=== PATIENT | female | born 1980 | race American Indian/Alaskan Native ===

== ENCOUNTER → 2017-10-27 | Day surgery (SDC) | payer MEDICAID ==
[~2017-10-27] MED LIST: Bupivacaine 0.5% 10 ML SDV INJECT ONE; Bupivacaine 0.5% 10 ML SDV ONE; Dexamethasone 4 MG/ML SDV IV ONE; Gentamicin 40 MG/ML 2 ML Vial ONE; Glycopyrrolate 0.2 MG/ML 2 ML SDV IV ONE; Ketorolac 30 MG/ML SDV IVPUSH ONE; Lactated Ringers 1,000 ML IV SCH; Lidocaine 1% 30 ML SDV INJECT ONE; Lidocaine 1% 30 ML SDV ONE; Midazolam 1 MG/ML 2 ML SDV IV ONE; Ondansetron 4 MG/2 ML SDV IV ONE; Propofol 200 MG/20 ML SDV IV ONE; Sodium Chloride 0.9% 10 ML Syringe FLUSH PRN; ceFAZolin 1 GM in Premix Bag 1 BAG IV ONE; ceFAZolin 2 GM in Premix Bag 1 BAG IV ONE; fentaNYL 100 MCG/2 ML SDV IV ONE
--- NOTE | 2017-10-27 11:29 | PCM.OPNOTE ---
- General Post-Op/Procedure Note Date of Surgery/Procedure: 10/27/17 Operative Procedure(s): right anterior tibial tendon debridement with chorion allograft Pre Op Diagnosis: right anterior tibial tendon pain with nodule Post-Op Diagnosis: francie with abscess/inflammatory nodule Anesthesia Technique: General LMA Primary Surgeon: Eunice Craven Anesthesia Provider: Balta Paz EBL in mLs: 5 Complications: none Condition: Good Free Text/Narrative:: Intake & Output 10/26/17 10/27/17 10/27/17 22:59 06:59 14:59 Intake Total 50 Balance 50 Pt tolerated procedure well and was transported to recovery with vss and vascular status intact to [facility]. Culture taken and abcess/inflammatory sac removed and sent to pathology. Amniofix allograft applied to tendon. Pt placed in well padded L&U splint NWB.
[2017-10-27 12:09] VITALS: BP 134/79
--- NOTE | 2017-10-28 13:41 | OR ---
DATE: 10/27/2017 PREOPERATIVE DIAGNOSES: 1. Anterior tibial tendinopathy, right ankle. 2. Foreign body reaction, right anterior tibial tendon. POSTOPERATIVE DIAGNOSES: 1. Anterior tibial tendinopathy, right ankle. 2. Foreign body reaction, right anterior tibial tendon. 3. Inflammatory soft tissue mass/abscess, right ankle. PROCEDURE PERFORMED: Right anterior tibial tendon debridement with removal of soft tissue mass and application of amnion allograft. ANESTHESIA: General LMA with preoperative local block of 10 mL of 1:1 mixture of 1% lidocaine plain and 0.5% Marcaine plain. TOURNIQUET TIME: 75 minutes of pneumatic thigh tourniquet. ESTIMATED BLOOD LOSS: Minimal SPECIMEN REMOVED: Right ankle tendon mass. There was also culture performed at the right ankle. COMPLICATIONS: None. INDICATIONS: Stpehanie is a 36-year-old female who presents with right ankle pain. I have seen her multiple times in the past, I have also done surgery on this tendon in the past where she had gotten infection right after the surgery due to removing her dressings and getting it wet. She had to be taken to the operating room for washout and was not compliant with nonweightbearing, she ended up rupturing that tendon. I did have to bring her in to get the tendon repaired. Now she has been having some issues since the tendon repair, which was last year. She has a mass on the side of the tendon area/surgical area that seems to swell up and then it will sometimes ooze green drainage and then she will get a popping sensation in that area and the swelling will go back down again. This has been a cycle for her that has been continuing. She no longer has any open lesions at this time, but still that painful palpable lump on the side of the tendon. MRI of the right ankle reveals abnormal appearance of the tendon at the dorsal ankle with multiple areas of increased signal intensity to the tendon and a bulbous appearance at the dorsal ankle at the anterior tibial tendon. The tendon appears intact. There is significant area of surrounding increased signal intensity. The other ankles and ankle joint appear healthy. The patient voiced good understanding of proposed procedure and possible complications and elects to have surgery at this time. DESCRIPTION OF THE PROCEDURE: The patient was taken to the operating room lying in supine position. After adequate anesthesia induction as described above, the right foot and ankle were prepped and draped in the usual sterile fashion. A pneumatic thigh tourniquet was inflated to 225 mmHg. Attention was then directed to the right dorsal ankle overlying the tibialis anterior tendon, where a curvilinear incision was made just medial to the tendon at the area of the soft tissue mass. Sharp and blunt dissection were performed down to the level of the anterior tibial tendon and the soft tissue mass. There was a significant amount of scar tissue in this area and the tendon was adhered down to the dorsal ankle capsule. There was a large soft tissue mass at the medial aspect of the anterior tibial tendon coming right off the tendon that appeared to have inflammation tissue within the mass and there was a greenish drainage coming from the mass. This was completely excised off the tendon and cultures were taken as well as this was sent to Pathology. There was noted to be a large group of sutures within the mass. They were nylon sutures. The tendon was freed of all scar tissue and was debrided of all scarred/nonviable tissue. Once normal healthy-appearing tendon was visualized, the remainder of the nylon sutures were removed from the tendon and there were some inflammatory changes around the sutures. Any Non-healthy appearing tendon was removed and an amnion allograft was applied to the tendon. The tendon was fully intact. Before the graft was placed, the area was irrigated with copious amounts of sterile saline with gentamicin mixture. The graft was placed in the deep tissue was closed with 3-0 Vicryl and skin closure was completed with 4-0 nylon. The area was dressed with Xeroform to the incision site, fluffs, Webril, and a well-padded L and U splint with the foot in slight inversion. She will be nonweightbearing and is not to remove the splint. She tolerated the anesthesia and procedure well and was transported to the recovery room with vital signs stable and vascular status intact as noted by immediate hyperemia to all digits upon deflation of the thigh tourniquet. The patient was then discharged home when she met the hospital discharge requirements. [facility] /[id number]
== END | disposition home or self-care (01) ==
LOC: DL.SDS 07:00
PROVIDERS: ATTEND Podiatrist
DX: M76.811 Anterior tibial syndrome, right leg (principal); L02.415 Cutaneous abscess of right lower limb
CPT/HCPCS: 00400; 81025; 87070; 87075; 87077; 87186; C1762; J0690; J1100; J1580; J1885; J2250; J2405; J2704; J3010; J3490; J7120

== ENCOUNTER 2020-01-16 20:10 | Emergency (ER) | payer MEDICAID ==
[2020-01-16 20:28] VITALS: BP 161/88; PULSE 95
--- NOTE | 2020-01-16 21:00 | EDM.PDOC ---
ED HPI GENERAL MEDICAL PROBLEM - General Chief Complaint: Upper Extremity Injury/Pain Stated Complaint: AMBULANCE Time Seen by Provider: 01/16/20 20:15 Source of Information: Reports: Patient, EMS History Limitations: Reports: No Limitations - History of Present Illness INITIAL COMMENTS - FREE TEXT/NARRATIVE: ED via [facility] with report of fall at home [employer] fell on right arm, Reports slipped . Pain to elbow and wrist. Sling per EMS. No gross deformity, mild swelling lateral wrist. Did not hit head. Denies other injury Right Arm Pain Score (Numeric/FACES): 6 - Related Data Allergies Allergy/AdvReac Type Severity Reaction Status Date / Time codeine Allergy Itching Verified 01/16/20 20:16 tramadol Allergy Hives Verified 01/16/20 20:16 Home Meds: Home Meds Betamethasone Valerate 1 applic TOP BEDTIME PRN 08/25/16 [History] Gabapentin 600 mg PO TID 08/25/16 [History] oxyCODONE HCl/Acetaminophen [oxyCODONE-Acetaminophen 10-325] 10 tab PO BID 08/25 [History] Diclofenac Sodium [Voltaren 1% Gel] 1 applic TOP ASDIRECTED PRN 10/25/17 [ History] Past Medical History - Past Health History Medical/Surgical History: Denies Medical/Surgical History HEENT History: Reports: Impaired Vision Other HEENT History: RECURRENT APHTHOUS STOMATITIS (CANKER SORE); LIP PIERCINGS Cardiovascular History: Reports: None Respiratory History: Reports: Bronchitis, Recurrent Gastrointestinal History: Reports: Cholelithiasis, Chronic Constipation, Gastritis, GERD Genitourinary History: Reports: Other (See Below) Other Genitourinary History: PCOS; GALACTORRHEA (MILKY DISCHARGE FROM BREAST); AMENORRHEA DIRECTOR OF [employer] History: Reports: Polycystic Ovaries, , Other (See Below) 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: AMENNORHEA, galactorrhea Musculoskeletal History: Reports: Other (See Below) Other Musculoskeletal History: ARTHRALGIA; PSORIATIC ARTHRITIS Neurological History: Reports: None Psychiatric History: Reports: None Endocrine/Metabolic History: Reports: Obesity/BMI 30+ Hematologic History: Reports: None Immunologic History: Reports: Other (See Below) Other Immunologic History: PSORIATIC ARTHRITIS Oncologic (Cancer) History: Reports: None Dermatologic History: Reports: Other (See Below) Other Dermatologic History: TRACTION ALOPECIA, 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 Under care for a torn tendon in right ankle, on oxycodone/apap BID Oncologic Surgical History: Reports: None Dermatological Surgical History: Reports: None Social & Family History - Family History HEENT: Reports: Cataract Cardiac: Reports: Blood Clots/VTE/DVT, CAD, Hypertension, Pacemaker Respiratory: Reports: Asthma GI: Reports: None : Reports: None Musculoskeletal: Reports: Arthritis Neurological: Reports: CVA Psychiatric: Reports: None Endocrine/Metabolic: Reports: Diabetes, type II, Hypothyroidism, Other (See Below) Other Endocrine/Metabolic Family History: MULTIPLE FAMILY MEMBERS Hematologic: Reports: None Immunologic: Reports: None Dermatologic: Reports: Eczema Oncologic: Reports: Breast, Ovarian, Other (See Below) Other Oncologic Family History: UNKNOWN PATERNAL GRANDMOTHER - Tobacco Use Smoking Status *Q: Never Smoker Second Hand Smoke Exposure: No - Caffeine Use Caffeine Use: Reports: Soda Other Caffeine Use: AVERAGE OF 2-3 BEVERAGES A DAY - Recreational Drug Use Recreational Drug Use: No Review of Systems - Review of Systems Review Of Systems: Comprehensive ROS is negative, except as noted in HPI. ED EXAM, GENERAL - Physical Exam Exam: See Below Exam Limited By: No Limitations General Appearance: Alert, Mild Distress (tearful) Eye Exam: Bilateral Eye: EOMI, PERRL Ears: Normal External Exam, Normal TMs Nose: Normal Inspection Throat/Mouth: Normal Inspection Head: Atraumatic, Normocephalic Neck: Normal Inspection. No: Tender Lateral, Tender Midline Respiratory/Chest: No Respiratory Distress, Lungs Clear, Normal Breath Sounds Cardiovascular: Normal Peripheral Pulses, Regular Rate, Rhythm Back Exam: Normal Inspection Extremities: Arm Pain (elbow to wrist right mild deformity swelling right alteral wrist. good hand grasp) Neurological: Alert, Oriented Psychiatric: Tearful Skin Exam: Warm, Dry, Intact, Normal Color. No: Ecchymosis Course - Vital Signs Last Recorded V/S: Last Vital Signs Temp 99 F 03/25/20 20:11 Pulse 95 01/16/20 20:11 Resp 18 01/16/20 20:11 BP 161/88 H 01/16/20 20:11 Pulse Ox 100 01/16/20 20:11 - Orders/Labs/Meds Orders: Active Orders 24 hr Category Date Time Status Elbow Min 3V Rt [CR] Urgent Exams 01/16/20 20:13 Taken Forearm 2V Rt [CR] Urgent Exams 01/16/20 20:13 Taken Wrist Comp Min 3V Rt [CR] Urgent Exams 01/16/20 20:13 Taken - Radiology Interpretation Free Text/Narrative:: xray right elbow, forearm, and wrist negative for fracture, see reports Departure - Departure Time of Disposition: 20:58 Disposition: Home, Self-Care 01 Condition: Good Clinical Impression: Right arm pain - Discharge Information *PRESCRIPTION DRUG MONITORING PROGRAM REVIEWED*: No *COPY OF PRESCRIPTION DRUG MONITORING REPORT IN PATIENT SEBLE: No Instructions: How To Use a Sling, [id number], Musculoskeletal Pain Referrals: PCP,Unobtain [Ordering Only Provider] - Forms: ED Department Discharge Additional Instructions: ice to wrist and arm tylenol every 4 hours as needed for pain sling for comfort follow up in clinic if continued pain Sepsis Event Note - Evaluation Sepsis Screening Result: No Definite Risk - Focused Exam Vital Signs: Vital Signs Temp Pulse Resp BP Pulse Ox 01/16/20 20:11 99 F 95 18 161/88 H 100 Date Exam was Performed: 01/17/20 Time Exam was Performed: 03:35 - My Orders Last 24 Hours: My Active Orders 01/16/20 20:13 Elbow Min 3V Rt [CR] Urgent Forearm 2V Rt [CR] Urgent Wrist Comp Min 3V Rt [CR] Urgent - Assessment/Plan Last 24 Hours: My Active Orders 01/16/20 20:13 Elbow Min 3V Rt [CR] Urgent Forearm 2V Rt [CR] Urgent Wrist Comp Min 3V Rt [CR] Urgent
== END 2020-01-16 21:10 | disposition home or self-care (01) ==
LOC: DL.ED 20:10
DX: M79.601 Pain in right arm (principal); M79.89 Other specified soft tissue disorders; E66.9 Obesity, unspecified; Z68.34 Body mass index [BMI] 34.0-34.9, adult; Z88.5 Allergy status to narcotic agent; Z79.899 Other long term (current) drug therapy
CPT/HCPCS: 73080-RT; 73090-RT; 73110-RT; 99283-25

== ENCOUNTER 2020-04-17 07:13 | Day surgery (SDC) | payer MEDICAID ==
[~2020-04-17 07:13] MED LIST changes: -Bupivacaine 0.5% 10 ML SDV INJECT ONE; -Bupivacaine 0.5% 10 ML SDV ONE; -Dexamethasone 4 MG/ML SDV IV ONE; -Gentamicin 40 MG/ML 2 ML Vial ONE; -Glycopyrrolate 0.2 MG/ML 2 ML SDV IV ONE; -Ketorolac 30 MG/ML SDV IVPUSH ONE; -Lactated Ringers 1,000 ML IV SCH; -Lidocaine 1% 30 ML SDV INJECT ONE; -Lidocaine 1% 30 ML SDV ONE; -Midazolam 1 MG/ML 2 ML SDV IV ONE; -Ondansetron 4 MG/2 ML SDV IV ONE; -Propofol 200 MG/20 ML SDV IV ONE; -ceFAZolin 1 GM in Premix Bag 1 BAG IV ONE; -ceFAZolin 2 GM in Premix Bag 1 BAG IV ONE; -fentaNYL 100 MCG/2 ML SDV IV ONE
[2020-04-17] MEDS ORDERED: Bupivacaine 0.5% 30 ML SDV INJECT ONE ×4 (07:14→09:33)
[2020-04-17] MEDS ORDERED: Midazolam 1 MG/ML 2 ML SDV IV ONE (07:14)
[2020-04-17] MEDS ORDERED: Ondansetron 4 MG/2 ML SDV IV ONE (07:14)
[2020-04-17] MEDS ORDERED: Dexamethasone 4 MG/ML SDV IV ONE (07:14)
[2020-04-17] MEDS ORDERED: Betamethasone Acetate/Betamethasone Sod Phosphate 30 MG/5 ML MDV INJECT ONE (07:14)
[2020-04-17] MEDS ORDERED: fentaNYL 100 MCG/2 ML SDV IV ONE (07:14)
[2020-04-17] MEDS ORDERED: Lidocaine 1% 30 ML SDV INJECT ONE ×4 (07:14→09:33)
[2020-04-17] MEDS ORDERED: Propofol 200 MG/20 ML SDV IV ONE (07:14)
[2020-04-17] MEDS ORDERED: Ketorolac 30 MG/ML SDV IVPUSH ONE (07:14)
[2020-04-17] MEDS ORDERED: Bupivacaine 0.5% 30 ML SDV ONE (07:20)
[2020-04-17] MEDS ORDERED: Lidocaine 1% 30 ML SDV ONE (07:21)
[2020-04-17] MEDS ORDERED: Sodium Chloride 0.9% 10 ML Syringe FLUSH PRN (08:00)
[2020-04-17] MEDS ORDERED: Lactated Ringers 1,000 ML IV SCH (08:00)
[2020-04-17] MEDS: ceFAZolin 2 GM in Premix Bag 1 BAG IV ONE ×2 (08:09→08:39)
[2020-04-17] MEDS ORDERED: Betamethasone Acetate/Betamethasone Sod Phosphate 30 MG/5 ML MDV ONE ×2 (09:09→09:31)
[2020-04-17] MEDS ORDERED: Acetaminophen/oxyCODONE 325-5 MG Tab PO PRN (09:50)
--- NOTE | 2020-04-17 09:53 | PCM.OPNOTE ---
- General Post-Op/Procedure Note Date of Surgery/Procedure: 04/17/20 Operative Procedure(s): right ankle tendon exploration with scar tissue excision and epifix application, sinus tarsi ganglion cyst excision Pre Op Diagnosis: right ankle pain and tendonopathy, ganglion cyst sinus tarsi Post-Op Diagnosis: francie Anesthesia Technique: General LMA, Local Primary Surgeon: Eunice Craven Anesthesia Provider: Balta Paz Pathology: ganglion cyst sinus tarsi EBL in mLs: 5 Complications: none Condition: Good Free Text/Narrative:: Pt tolerated procedure well and was transported to recovery with vascular status intact to right LE. Well padded compression dressing applied. Epifix applied to right ankle tendon
[2020-04-17 12:43] VITALS: BP 117/61; PULSE 52
--- NOTE | 2020-04-18 14:46 | OR ---
DATE: 04/17/2020 PREOPERATIVE DIAGNOSES: 1. Right foot ganglion cyst. 2. Right foot ankle tendinopathy. POSTOPERATIVE DIAGNOSES: 1. Right foot ganglion cyst. 2. Right foot ankle tendinopathy. PROCEDURES PERFORMED: 1. Right foot ganglion cyst excision. 2. Right ankle extensor tendon exploration with EpiFix application. ANESTHESIA: Local MAC with preoperative local block of 10 mL of 1:1 mixture of 1% lidocaine plain and 0.5% Marcaine plain. TOURNIQUET TIME: 28 minutes, pneumatic ankle tourniquet. ESTIMATED BLOOD LOSS: Minimal. SPECIMEN REMOVED: Right foot cyst. COMPLICATIONS: None. INDICATIONS: Stephanie is a 39-year-old female who presents with chronic right ankle pain. She has had a few different surgeries to this foot, starting with a different business management associate performing where he did tendon debridement of the anterior tibial tendon x2 and then also she developed an infection in the area and subsequent fracture which seemed to be repaired. She is still having pain along the top of the ankle, but it seems to be more along the extensor tendons and not at the anterior tibial tendon anymore, but there is quite a bit of scar tissue in that area. She also has pain to the outside of her ankle/foot sinus tarsi area that shoots across the whole foot to the other side. She has failed injections of cortisone, anti-inflammatories. MRI of the right ankle reveals ganglion cyst present to the sinus tarsi area measuring 8 x 10 x 6 mm, improved appearance to the anterior tibial tendon when compared to last MRI with some thickening consistent with postoperative changes, marrow edema to the navicular, ligaments of the ankle and foot intact, increased signal to the extensor tendon of the ankle without evidence of intrasubstance tear. The patient voiced good understanding of proposed procedure and possible complications and elects to have surgery at this time. DESCRIPTION OF PROCEDURE: The patient was taken to the operating room lying in the supine position. After adequate anesthesia induction as described above, the right foot and ankle were prepped and draped in usual sterile fashion. A pneumatic ankle tourniquet was then inflated to 225 mmHg. Attention was first directed to the lateral foot just overlying the sinus tarsi where I could feel a palpable cyst, a 3 cm linear incision was made overlying the cyst area. Sharp and blunt dissection was performed down to level of the soft tissue mass, being careful to retract all neurovascular structures. The cyst was excised, it was popped when I was removing it and there was a ganglion type fluid in the cyst. The tissue was sent to pathology. The area was then inspected for any other soft tissue masses and none were identified. The area was irrigated with copious amounts of sterile saline and closure was completed with 3-0 Vicryl and 4-0 nylon. Attention was then directed to the dorsal aspect of the ankle where I had marked out her maximum area of tenderness which was overlying the extensor tendon. Sharp and blunt dissection was performed down to level of the tendon, this appeared healthy in appearance, however, there was some scar tissue just medial to that area overlying the anterior tibial tendon. I was able to see the anterior tibial tendon as well and this appeared healthy in appearance. There was quite a bit of scar tissue, which was all released from the area, so I had good fluid range of motion. I did apply the EpiFix to this area to help prevent scar tissue regrowth, the EpiFix was [id number]. It was a 4 x 4 cm EpiFix and the entire EpiFix was placed and none was wasted. The area was then irrigated with copious amounts of sterile saline. Closure was completed with 3- 0 Vicryl and 4-0 nylon. The areas were then dressed with Xeroform to the incision sites, fluffs, Webril, and Rolando wrap. She was placed in a CAM boot. The patient tolerated anesthesia and procedure well and was transferred to recovery room with vital signs stable and vascular status intact as noted by immediate hyperemia to all digits upon deflation of the ankle tourniquet. She was then discharged home when she met hospital discharge requirements. [facility] /[id number] REANNA
== END 2020-04-17 10:58 | disposition home or self-care (01) ==
LOC: DL.SDS 07:13
PROVIDERS: ATTEND Podiatrist
DX: M67.471 Ganglion, right ankle and foot (principal); M67.873 Other specified disorders of tendon, right ankle and foot; Z88.5 Allergy status to narcotic agent; Z91.040 Latex allergy status
CPT/HCPCS: 28090; 28208; 81025; J0690; J0702; J1100; J1885; J2001; J2250; J2405; J2704; J3010; J3490; J7120; Q4186

== ENCOUNTER 2021-03-07 13:42 | Emergency (ER) | payer MEDICAID ==
--- NOTE | 2021-03-07 15:45 | CT ---
PROCEDURE INFORMATION: Exam: CT Right Lower Extremity Without Contrast, Ankle Exam date and time: 03/07/2021 3:23 PM Age: 40 years old Clinical indication: Other: Lateral open wound; Prior surgery; Surgery date: 1-6 months; Additional info: Rule out ostyomylitis, surgery 01/19/21 TECHNIQUE: Imaging protocol: CT of the Right lower extremity without contrast was performed. Exam focused on the ankle. Radiation optimization: All CT scans at this facility use at least one of these dose optimization techniques: automated exposure control; mA and/or kV adjustment per patient size (includes targeted exams where dose is matched to clinical indication); or iterative reconstruction. COMPARISON: MR Ankle wo Cont Rt 02/29/2020 10:58 AM FINDINGS: Bones/joints: Lateral plate and screw fixation of the distal right fibula across a healed fracture. No fracture lines are visible. Well corticated ossicle inferior to distal tip the fibula. No evidence of bone destruction to suggest osteomyelitis. Screw tracts in lateral talar body and dome. Screw tracts in posterior calcaneus. Soft tissues: Diffuse subcutaneous edema, especially over the lateral malleolus. No discrete fluid collection is identified. IMPRESSION: Plate screw fixation distal left fibula across healed fracture. No CT findings to suggest osteomyelitis.
--- NOTE | 2021-03-07 17:01 | EDM.PDOC ---
ED HPI GENERAL MEDICAL PROBLEM - General Chief Complaint: Lower Extremity Injury/Pain Stated Complaint: SURG 2 MOS AGO /SEVERE ANKLE PAIN Time Seen by Provider: 03/07/21 17:01 Source of Information: Reports: Patient, RN, RN Notes Reviewed History Limitations: Reports: No Limitations - History of Present Illness INITIAL COMMENTS - FREE TEXT/NARRATIVE: Iliana is a 40 y/o female who presents to the ED via personal vehicle with complaints of right ankle pain. The patient reports a history of a surgical fixation to her right lateral ankle in December of 2020 with a Krunal Vee diatrist at [facility]. The patient reports she has had difficulty with pain during the healing process and has required extra courses of narcotic medication. She states the swelling to he ankle has waxed and waned in severity since surgery, but it has remained swollen steadily for about one and a half weeks. She has also started to note drainage from the surgical wound. The patient reports she is unsure of fever as she does not have a thermometer at home, but she does attest to shaking chills. She denies palpitations, loss of motor function, or loss of sensory function. She has taken one dose of Tylenol 650mg today for her pain. - Related Data Allergies Allergy/AdvReac Type Severity Reaction Status Date / Time Latex, Natural Rubber Allergy Intermediate Other Verified 04/17/20 07:35 codeine Allergy Itching Verified 04/17/20 07:35 tramadol Allergy Hives Verified 04/17/20 07:35 Home Meds: Home Meds Betamethasone Valerate 1 applic TOP BEDTIME PRN 08/25/16 [History] Gabapentin 600 mg PO TID 08/25/16 [History] Diclofenac Sodium [Voltaren 1% Gel] 1 applic TOP ASDIRECTED PRN 10/25/17 [History] Fluocinonide [Lidex 0.05% Crm] 1 applic TOP ASDIRECTED 04/16/20 [History] Orphenadrine [Norflex] 100 mg PO BEDTIME PRN 04/16/20 [History] oxyCODONE HCl/Acetaminophen [Percocet 10-325 mg Tablet] 1 - 2 tab PO DAILY PRN 04/16/20 [History] Past Medical History - Past Health History Medical/Surgical History: Denies Medical/Surgical History HEENT History: Reports: Impaired Vision, Other (See Below) Other HEENT History: RECURRENT APHTHOUS STOMATITIS (CANKER SORE); LIP PIERCINGS Cardiovascular History: Reports: None Respiratory History: Reports: Bronchitis, Recurrent Gastrointestinal History: Reports: Cholelithiasis, Chronic Constipation, Gastritis, GERD Genitourinary History: Reports: Other (See Below) Other Genitourinary History: PCOS; GALACTORRHEA (MILKY DISCHARGE FROM BREAST); AMENORRHEA ALL ROUND LOGGER History: Reports: Polycystic Ovaries, , Other (See Below) Other ALL ROUND LOGGER History: AMENNORHEA, galactorrhea Musculoskeletal History: Reports: Other (See Below) Other Musculoskeletal History: ARTHRALGIA; PSORIATIC ARTHRITIS Neurological History: Reports: None Psychiatric History: Reports: Anxiety Endocrine/Metabolic History: Reports: Obesity/BMI 30+ Hematologic History: Reports: None Immunologic History: Reports: Other (See Below) Other Immunologic History: PSORIATIC ARTHRITIS Oncologic (Cancer) History: Reports: None Dermatologic History: Reports: Psoriasis, Other (See Below) Other Dermatologic History: TRACTION ALOPECIA, drng wound present to L) ft - Infectious Disease History Infectious Disease History: Reports: Chicken Pox - Past Surgical History Head Surgeries/Procedures: Reports: None HEENT Surgical History: Reports: None Cardiovascular Surgical History: Reports: None Respiratory Surgical History: Reports: None GI Surgical History: Reports: Cholecystectomy Female Surgical History: Reports: Section Endocrine Surgical History: Reports: None Neurological Surgical History: Reports: None Musculoskeletal Surgical History: Reports: Other (See Below) Other Musculoskeletal Surgeries/Procedures:: CYST EXCISION ANKLE X2. Under care for a torn tendon in right ankle, on oxycodone/apap BID Oncologic Surgical History: Reports: None Dermatological Surgical History: Reports: None Social & Family History - Family History HEENT: Reports: Cataract Cardiac: Reports: Blood Clots/VTE/DVT, CAD, Hypertension, Pacemaker Respiratory: Reports: Asthma GI: Reports: None : Reports: None Musculoskeletal: Reports: Arthritis Neurological: Reports: CVA Psychiatric: Reports: None Endocrine/Metabolic: Reports: Diabetes, type II, Hypothyroidism, Other (See Below) Other Endocrine/Metabolic Family History: MULTIPLE FAMILY MEMBERS Hematologic: Reports: None Immunologic: Reports: None Dermatologic: Reports: Eczema Oncologic: Reports: Breast, Ovarian, Other (See Below) Other Oncologic Family History: UNKNOWN PATERNAL GRANDMOTHER - Tobacco Use Tobacco Use Status *Q: Never Tobacco User Second Hand Smoke Exposure: No - Caffeine Use Caffeine Use: Reports: Coffee Other Caffeine Use: AVERAGE OF 2-3 BEVERAGES A DAY - Recreational Drug Use Recreational Drug Use: No Review of Systems - Review of Systems Review Of Systems: Comprehensive ROS is negative, except as noted in HPI. ED EXAM, GENERAL - Physical Exam Exam: See Below Exam Limited By: No Limitations General Appearance: Alert, Mild Distress (Right ankle pain) Eye Exam: Bilateral Eye: EOMI, Normal Inspection, PERRL (3mm) Throat/Mouth: Normal Inspection, Normal Oropharynx, Normal Voice, No Airway Compromise Respiratory/Chest: No Respiratory Distress, Lungs Clear, Normal Breath Sounds, No Accessory Muscle Use, Chest Non-Tender Cardiovascular: Normal Peripheral Pulses, Regular Rate, Rhythm, No Edema, No Gallop, No JVD, No Murmur, No Rub Peripheral Pulses: 2+: Radial (L), Radial (R), Posterior Tibial (L), Posterior Tibial (R), Dorsalis Pedis (L), 3+: Dorsalis Pedis (R) GI/Abdominal: Normal Bowel Sounds, Soft, Non-Tender, No Distention, No Mass, Pelvis Stable (Female) Exam: Deferred Rectal (Female) Exam: Deferred Back Exam: Normal Inspection, Full Range of Motion. No: CVA Tenderness (L), CVA Tenderness (R) Extremities: Normal Capillary Refill, Pedal Edema (To right ankle), Joint Swelling (To right ankle), Leg Pain (Diffuse to right ankle), Limited Range of Motion (To right ankle and foot), Increased Warmth (To right ankle), Redness (To right lateral ankle), Other (Weeping wound to lateral aspect of right ankle) Neurological: Alert, Oriented, CN II-XII Intact, Normal Cognition, Normal Reflexes, No Motor/Sensory Deficits, Abnormal Gait (Right limping gait; patient utilized wheelchair). No: Normal Gait Psychiatric: Normal Affect, Normal Mood Skin Exam: Warm, No Rash, Erythema (To right ankle), Increased Warmth (To right ankle), Wound/Incision (See above). No: Ecchymosis, Jaundice, Mottled, Pallor, Petechiae Lymphatic: No Adenopathy Course - Vital Signs Last Recorded V/S: Last Vital Signs Temp 100.5 F 03/07/21 20:22 Pulse 79 05/15/21 20:09 Resp 20 03/07/21 20:09 BP 108/51 L 03/07/21 20:09 Pulse Ox 99 03/07/21 20:09 - Orders/Labs/Meds Labs: Laboratory Tests 03/07/21 03/07/21 03/07/21 Range/Units 17:28 17:28 17:28 WBC 22.6 H (5.0-10.0) 10^3/uL RBC 4.55 (4.2-5.4) 10^6/uL Hgb 12.2 (12.0-16.0) g/dL Hct 38.3 (37.0-47.0) % MCV 84.2 D (80-100) fL MCH 26.8 L (27.0-34.0) pg MCHC 31.9 L (33.0-35.0) g/dL Plt Count 412 D (150-450) 10^3/uL Neut % (Auto) 93.7 H (42.2-75.2) % Lymph % (Auto) 3.3 L (20.5-50.1) % [place] % (Auto) 2.9 (2-8) % Eos % (Auto) 0.0 L (1.0-3.0) % Baso % (Auto) 0.1 (0.0-1.0) % Sodium 140 (136-145) mmol/L Potassium 3.8 (3.5-5.1) mmol/L Chloride 101 (98-107) mmol/L Carbon Dioxide 27 (21-32) mmol/L Anion Gap 15.8 H (7-13) mEq/L BUN 10 (7-18) mg/dL Creatinine 0.79 (0.55-1.02) mg/dL Est Cr Clr Drug Dosing 82.56 mL/min Estimated GFR (MDRD) > 60 BUN/Creatinine Ratio 12.7 (No establ ref range) Glucose 92 (70-99) mg/dL Lactic Acid 0.7 (0.4-2.0) mmol/L Calcium 8.9 (8.5-10.1) mg/dL Total Bilirubin 0.7 (0.2-1.0) mg/dL AST 12 L (15-37) U/L ALT 22 (14-59) U/L Alkaline Phosphatase 80 (46-116) U/L C-Reactive Protein 2.0 H (0.0-0.9) mg/dL Total Protein 8.4 H (6.4-8.2) g/dL Albumin 4.2 (3.4-5.0) g/dL Globulin 4.2 Albumin/Globulin Ratio 1.0 Meds: Medications Discontinued Medications Generic Name Dose Route Start Last Admin Trade Name Freq PRN Reason Stop Dose Admin Acetaminophen 1,000 mg 03/07/21 20:11 03/07/21 20:22 Acetaminophen 500 Mg Tab PO 03/07/21 20:12 1,000 mg ONETIME ONE Administration Ceftriaxone Sodium 2 gm/ 100 mls @ 200 mls/hr 03/07/21 19:11 03/07/21 19:30 Sodium Chloride IV 03/07/21 19:40 200 mls/hr ONETIME ONE Administration Vancomycin HCl 1,500 mg/ 500 mls @ 333.333 mls/hr 03/07/21 19:29 03/07/21 20:02 Sodium Chloride IV 03/07/21 20:58 333.333 mls/hr ONETIME ONE Administration Piperacillin Sod/Tazobactam 100 mls @ 200 mls/hr 03/07/21 19:30 03/07/21 19:58 Sod 3.375 gm/ Sodium Chloride IV 03/07/21 19:59 200 mls/hr ONETIME ONE Administration Tramadol HCl 50 mg 03/07/21 17:27 03/07/21 18:09 Tramadol 50 Mg Tab PO 03/07/21 17:28 50 mg ONETIME ONE Administration - Radiology Interpretation Free Text/Narrative:: [facility] Final Radiology Report Call: [phone] assistance Online chat: [email or web address] Name: ILIANA HENNESSY Age: 40Years F Date: 03/07/2021 SSN: -- : [id number] Study: CT ANKLE WO CONT RT Requesting Physician: Michelle Muñoz Images: [id number] Addl Studies: Provided Clinical History: rule out ostyomylitis, surgery 01/19/21 Contrast: Without Contrast Medium: Contrast Amount: Contrast Method: Page 1 of 2 PROCEDURE INFORMATION: Exam: CT Right Lower Extremity Without Contrast, Ankle Exam date and time: 03/07/2021 3:23 PM Age: 40 years old Clinical indication: Other: Lateral open wound; Prior surgery; Surgery date: 1-6 months; Additional info: Rule out ostyomylitis, surgery 01/19/21 TECHNIQUE: Imaging protocol: CT of the Right lower extremity without contrast was performed. Exam focused on the ankle. Radiation optimization: All CT scans at this facility use at least one of these dose optimization techniques: automated exposure control; mA and/or kV adjustment per patient size (includes targeted exams where dose is matched to clinical indication); or iterative reconst ruction. COMPARISON: MR Ankle wo Cont Rt 02/29/2020 10:58 AM FINDINGS: Bones/joints: Lateral plate and screw fixation of the distal right fibula across a healed fracture. No fracture lines are visible. Well corticated ossicle inferior to distal tip the fibula. No evidence of bone destruction to suggest osteomyelitis. Screw tracts in lateral talar body and dome. Screw tracts in posterior calcaneus. Soft tissues: Diffuse subcutaneous edema, especially over the lateral malleolus. No discrete fluid collection is identified. IMPRESSION: Plate screw fixation distal left fibula across healed fracture. No CT findings to suggest osteomyelitis. Thank you for allowing us to participate in the care of your patient. Dictated and Authenticated by: Tess Leigh MD 03/07/2021 3:45 PM Central Time ([place] & [place]) - Re-Assessments/Exams Free Text/Narrative Re-Assessment/Exam: 03/07/21 Culture from wound obtained. CT right lower extremity obtain; negative for evidence of osteomyelitis. No evidence of bone destruction, hardware intact. WBC 22.6 with left shift. No evidence of anemia via CBC with Hgb 12 Electrolytes, kidney function, and liver function appropriate via CMP. CRP slightly elevated at 2. Rocephin 2gm IVP initiated. Case discussed with Dr. Hernández, hospitalist at [facility], who kindly accepted patient for transfer. Dr. Hernández requested Vancomycin and Zosyn be started en route. Findings of examination, lab work, and imaging reviewed with patient and her who verbalized understanding and agreement with the plan of care. Departure - Departure Time of Disposition: 19:24 Disposition: DC/Tfer to Acute Hospital 02 Condition: Good Clinical Impression: Infected surgical wound, History of ankle surgery - Discharge Information Forms: ED Department Discharge, Interfacility Transfer [facility] Sepsis Event Note (ED) - Evaluation Sepsis Screening Result: No Definite Risk
[2021-03-07] MEDS ORDERED: traMADol 50 MG Tab PO ONE (17:27)
[2021-03-07 17:58] LABS: ANION GAP 15.8 mEq/L (7-13); CHLORIDE,CL 101 mmol/L (98-107); SODIUM,NA 140 mmol/L (136-145)
[2021-03-07] MEDS ORDERED: cefTRIAXone 2 GM in Sodium Chloride 0.9% 100 ML IV ONE (19:11)
[2021-03-07] MEDS ORDERED: Piperacillin/Tazobactam 3.375 GM in Sodium Chloride 0.9% 100 ML IV ONE (19:30)
[2021-03-07 20:10] VITALS: BP 108/51; PULSE 79
[2021-03-07] MEDS ORDERED: Acetaminophen 500 MG Tab PO ONE (20:11)
== END 2021-03-07 20:28 ==
LOC: DL.ED 13:42
DX: T81.49XA Infection following a procedure, other surgical site, initial encounter (principal); E66.9 Obesity, unspecified; Z68.32 Body mass index [BMI] 32.0-32.9, adult; Z91.040 Latex allergy status; Z88.5 Allergy status to narcotic agent; Z79.899 Other long term (current) drug therapy
CPT/HCPCS: 36415; 73700-RT; 80053; 83605; 85025; 86140; 87040; 96365; 96367; 99284; 99285-25; A9270-GY; J0696; J2543; J3370; J7040

== ENCOUNTER 2021-04-26 14:52 | Emergency (ER) | payer MEDICAID | END 2021-04-26 16:21 | disposition left against medical advice (07) | LOC: DL.ED 14:52 | DX: Z53.21 Procedure and treatment not carried out due to patient leaving prior to being seen by health care provider (principal) ==

== ENCOUNTER 2022-04-12 05:31 | Day surgery (SDC) | payer MEDICAID ==
[~2022-04-12 05:31] MED LIST changes: -Sodium Chloride 0.9% 10 ML Syringe FLUSH PRN; +Sodium Chloride 0.9% 10 ML Syringe FLUSH SCH
[2022-04-12] MEDS ORDERED: fentaNYL 100 MCG/2 ML SDV IV ONE ×5 (05:32→07:10)
[2022-04-12] MEDS ORDERED: Midazolam 1 MG/ML 2 ML SDV IV ONE ×7 (05:32→07:06)
[2022-04-12] MEDS ORDERED: Sodium Chloride 0.9% 10 ML Syringe FLUSH PRN (06:00)
[2022-04-12] MEDS ORDERED: Dextrose 5%-0.45% NaCl 1,000 ML IV SCH (06:00)
[2022-04-12] MEDS ORDERED: Midazolam 1 MG/ML 2 ML SDV ONE (06:09)
[2022-04-12] MEDS ORDERED: fentaNYL 100 MCG/2 ML SDV ONE (06:09)
[2022-04-12 09:35] VITALS: BP 94/44; PULSE 41
== END 2022-04-12 09:25 | disposition home or self-care (01) ==
LOC: DL.ENDO 05:31
PROVIDERS: ATTEND Internal Medicine Gastroenterology
DX: K62.5 Hemorrhage of anus and rectum (principal); F12.90 Cannabis use, unspecified, uncomplicated; N64.3 Galactorrhea not associated with childbirth; F11.20 Opioid dependence, uncomplicated; M19.171 Post-traumatic osteoarthritis, right ankle and foot; G89.29 Other chronic pain; D64.9 Anemia, unspecified; E66.09 Other obesity due to excess calories; K59.00 Constipation, unspecified; Z90.49 Acquired absence of other specified parts of digestive tract; Z91.040 Latex allergy status; Z88.5 Allergy status to narcotic agent; Z68.24 Body mass index [BMI] 24.0-24.9, adult; Z87.39 Personal history of other diseases of the musculoskeletal system and connective tissue
CPT/HCPCS: 45378; J2250; J3010; J7042

== ENCOUNTER 2023-01-22 16:15 | Emergency (ER) | payer MEDICAID, OTHER ==
[2023-01-22] MEDS ORDERED: Dicyclomine 10 MG Cap PO ONE (16:16)
[2023-01-22] MEDS ORDERED: Promethazine 25 MG Tab PO ONE (16:16)
[2023-01-22] MEDS ORDERED: predniSONE 20 MG Tab PO ONE (16:16)
[2023-01-22 16:26] VITALS: BP 125/61; PULSE 62
[2023-01-22] MEDS ORDERED: Sodium Chloride 0.9% 1,000 ML IV ONE (16:34)
[2023-01-22] MEDS ORDERED: Ondansetron 4 MG/2 ML SDV IV ONE ×2 (16:34→18:34)
[2023-01-22] MEDS ORDERED: Famotidine 20 MG/2 ML SDV IVPUSH ONE (16:35)
[2023-01-22] MEDS: Sodium Chloride 0.9% 10 ML Syringe FLUSH PRN ×2 (16:54→18:40)
[2023-01-22 17:11] LABS: ANION GAP 11.8 mEq/L (7-13); CHLORIDE,CL 107 mmol/L (98-107); SODIUM,NA 143 mmol/L (136-145)
[2023-01-22 17:14] LABS: ESTIMATED GFR 114 mL/min (>=60)
[2023-01-22] MEDS ORDERED: Iopamidol 612 MG/ML 100 ML Bottle IVPUSH ONE (17:19)
[2023-01-22] MEDS ORDERED: methylPREDNISolone Sodium Succinate 125 MG/2 ML SDV IVPUSH ONE (18:21)
[2023-01-22] MEDS ORDERED: Promethazine 25 MG Tab ONE (18:28)
[2023-01-22] MEDS ORDERED: predniSONE 20 MG Tab ONE (18:28)
[2023-01-22] MEDS ORDERED: Dicyclomine 10 MG Cap ONE (18:33)
== END 2023-01-22 18:57 | disposition home or self-care (01) ==
LOC: DL.ED 16:15
DX: K52.9 Noninfective gastroenteritis and colitis, unspecified (principal); N83.201 Unspecified ovarian cyst, right side; N28.89 Other specified disorders of kidney and ureter; E66.9 Obesity, unspecified; Z68.27 Body mass index [BMI] 27.0-27.9, adult; Z86.16 Personal history of COVID-19; Z91.040 Latex allergy status; Z88.5 Allergy status to narcotic agent; Z79.899 Other long term (current) drug therapy
CPT/HCPCS: 36415; 74177; 80053; 81001; 82150; 83605; 83690; 85025; 86140; 96361; 96374; 96375; 96376; 99284-25; A9270-GY; J2405; J2930; J3490; J7030; J7512; Q9967